=== PATIENT | male | born 1960 | race Caucasian/White ===

== ENCOUNTER 2023-09-02 10:15 | Emergency (ER) | payer OTHER ==
[~2023-09-02] VITALS: Ht 193 cm; Wt 107.0 kg
[2023-09-02 10:41] LABS: BASOPHILS 0.5 % (0-2); EOSINOPHILS 0.6 % (0-6); HEMOGLOBIN 13.6 g/dL (12.0-18.0); LYMPHOCYTES 42.1 % (24-44); MCH 32.7 (27-36); MCV 93.5 fl (81-99); MONOCYTES 10.3 % (0-12); NEUTROPHILS 46.5 % (39-80); PLATELET COUNT 147 K/uL (140-440); RBC 4.17 M/ul (4.3-5.7); RDW 13.4 (10.5-15.0)
[2023-09-02] MEDS ORDERED: VENTOLIN HFA18 GM INH (10:41)
[2023-09-02] MEDS ORDERED: ALL DAY ALLERGY10 M4 PO (10:41)
[2023-09-02] MEDS ORDERED: ASTEPRO AL205.5 MCG/ NAS (10:41)
[2023-09-02] MEDS ORDERED: PROPRANOLOL HCL20 MG PO (10:42)
[2023-09-02] MEDS ORDERED: CELECOXIB200 MG PO (10:42)
[2023-09-02] MEDS ORDERED: WAL-ZYR10 M1 PO (10:42)
[2023-09-02] MEDS ORDERED: CLOPIDOGREL75 MG PO (10:43)
[2023-09-02] MEDS ORDERED: FLOMAX0.4 MG PO (10:43)
[2023-09-02] MEDS ORDERED: BIKTARVY 30-121 EACH PO (10:43)
[2023-09-02] MEDS ORDERED: PROSCAR5 MG PO (10:48)
[2023-09-02] MEDS ORDERED: COL-RITE250 MG PO (10:49)
[2023-09-02] MEDS ORDERED: AMITRIPTYLINE H25 MG PO (10:49)
[2023-09-02] MEDS ORDERED: VITAMIN D325 MCG PO (10:49)
[2023-09-02] MEDS ORDERED: NITROSTAT0.4 MG (10:50)
[2023-09-02] MEDS ORDERED: CRESTOR40 MG PO (10:50)
[2023-09-02 10:58] LABS: ALBUMIN 4.1 g/dL (3.4-5.0); ALBUMIN/GLOBULIN RATIO 1.37 (1.1-2.4); ANION GAP 14.7 (7-21); BILIRUBIN, TOTAL 0.9 ng/dL (0.2-1.0); BUN/CREATININE RATIO 12.5 (6.0-28.6); CALCIUM 8.6 mg/dL (8.5-10.1); CREATININE, SERUM 1.12 mg/dL (0.70-1.30); POTASSIUM 3.7 mmol/L (3.5-5.1); PROTEIN, TOTAL 7.1 g/dL (6.4-8.2)
--- OUTSIDE RECORDS SUMMARY | 2023-09-02 11:01 | XMS ---
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 Rubens has no Care Guidelines for this patient. Curtis VISIT COUNT (12 MO.) 1 AIDAN Echeverria TOTAL 1 NOTE: Visits indicate total known visits. ED/UCC VISIT TRACKING (12 MO.) 09/02/2023 10:16 AIDAN Gagnon OR TYPE: Emergency COMPLAINT: - CHEST PAIN INPATIENT VISIT TRACKING (12 MO.) No inpatient visits to display in this time frame [id number]"
--- NOTE | 2023-09-02 12:01 | EKG ---
[facility] [address] [place], [place] [address] Signed Sinus rhythm with frequent premature ventricular complexes Low voltage QRS Borderline ECG No previous ECGs available Confirmed by Say Fontanez MD ([id number]) on 09/02/2023 12:00:52 PM Electronically Signed By: SAY FONTANEZ 09/02/23 1201 PATIENT NAME: CATALANEILZA Electrocardiogram DATE OF : 64 PHYSICIAN: SAY FONTANEZ REPORT #: [id number] REPORT IS CONFIDENTIAL AND NOT TO BE RELEASED WITHOUT AUTHORIZATION
[2023-09-02 14:28] VITALS: BP 131/79
== END 2023-09-02 14:29 | disposition home or self-care (01) ==
LOC: ED 10:15
PROVIDERS: Emergency Medicine
DX: I20.89 Other forms of angina pectoris (principal); I25.2 Old myocardial infarction; Z88.1 Allergy status to other antibiotic agents; Z79.899 Other long term (current) drug therapy
CPT/HCPCS: 36415; 71045; 80053; 83735; 84484; 85025; 93005; 93010; 99285-25